=== PATIENT | male | born 1970 | race African-American/Black ===

== ENCOUNTER 2018-08-11 12:26 | Emergency (ER) | payer OTHER ==
[~2018-08-11] VITALS: Ht 170.2 cm; Wt 77.1 kg
[~2018-08-11 12:26] MED LIST: ASPIR 8181 MG PO; EFFIENT10 MG PO; FISH OIL 1,001000 M2 PO
[2018-08-11 12:44] LABS: HEMATOCRIT 41.8 % (42.0-52.0); HEMOGLOBIN 14.9 gm/dL (14.0-18.0); MCH 29.7 pg (26.0-34.0); MCHC 35.7 g/dL (28.0-37.0); PLATELET COUNT 284 thou/uL (150-400); RBC 5.04 mil/uL (4.50-6.00); RDW 16.1 % (10.5-14.5)
[2018-08-11 12:53] LABS: ANION GAP 15 mmol/L (7-16); BUN 12 mg/dL (7-18); CALCIUM 8.9 mg/dL (8.5-10.1); CHLORIDE 105 mmol/L (98-107); CO2 20 mmol/L (21-32); CREATININE 1.1 mg/dL (0.7-1.3); GLUCOSE 178 mg/dL (74-106); POTASSIUM 3.9 mmol/L (3.5-5.1); SODIUM 140 mmol/L (136-145)
[2018-08-11 13:03] LABS: ALBUMIN 3.7 g/dL (3.4-5.0); SGOT 18 U/L (15-37); SGPT 34 U/L (30-65); TOTAL PROTEIN 7.8 g/dL (6.4-8.2); TROPONIN-I <0.06 ng/mL (<0.06)
[2018-08-11 13:47] LABS: URINE BILIRUBIN NEGATIVE (Negative); URINE BLOOD NEGATIVE (Negative); URINE CLARITY CLEAR; URINE COLOR YELLOW; URINE GLUCOSE-RANDOM* NEGATIVE (Negative); URINE KETONES NEGATIVE (Negative); URINE LEUKOCYTES-REFLEX NEGATIVE (Negative); URINE NITRITE-REFLEX NEGATIVE (Negative); URINE PROTEIN (DIPSTICK) NEGATIVE (Negative); URINE SPECIFIC GRAVITY >= 1.030 (1.005-1.035); URINE UROBILINOGEN 0.2 E.U./dl (0.2-1.0)
[2018-08-11 13:55] LABS: AMP/METHAMP Negative (Negative); BARBITURATES Negative (Negative); BENZODIAZEPINES Negative (Negative); COCAINE Negative (Negative); METHADONE Negative (Negative); OPIATES Negative (Negative); PCP Negative (Negative)
[2018-08-11 14:38] LABS: ABSOLUTE NEUTROPHILS 8.6 thou/uL (1.4-8.2); ANISOCYTOSIS 1+
--- NOTE | 2018-08-11 16:17 | EKG ---
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 : 1970 Requested By: Shelley Baugh Order Number: [id number] MD: Darien Gonsales Measurements Intervals [place] Rate: 59 P: 75 HI: 155 QRS: 93 QRSD: 91 T: -4 QT: 438 QTc: 434 Interpretive Statements Sinus rhythm Borderline right axis deviation Consider left ventricular hypertrophy With repolarization abnormality Compared to ECG 05/12/2015 00:17:57 No significant changes Electronically Signed On 08-11-2018 16:17:27 CDT by Darien Gonsales [email or web address] ��������������������������������������������� <ELECTRONICALLY SIGNED> ���������������������������������������� By: Darien Gonsales MD ��������������������������������������������� 08/11/18 1617 1239 1239 Darien Gonsales MD /DEEPTI
[2018-08-11] MEDS ORDERED: PRILOSEC 20 MG20 MG PO (16:21)
[2018-08-11] MEDS ORDERED: PEPCID20 MG PO (16:21)
[2018-08-11] MEDS ORDERED: NITROGLYCERIN0.4 MG SUBLING (16:26)
[2018-08-11 16:33] VITALS: BP 157/104
== END 2018-08-11 16:33 | disposition home or self-care (01) ==
LOC: ER 12:26
PROVIDERS: Physician Assistant
DX: K30 Functional dyspepsia (principal); R07.89 Other chest pain; I10 Essential (primary) hypertension; F17.210 Nicotine dependence, cigarettes, uncomplicated; Z91.018 Allergy to other foods; Z88.5 Allergy status to narcotic agent; Z95.5 Presence of coronary angioplasty implant and graft